=== PATIENT | male | born 1965 | race Caucasian/White ===

== ENCOUNTER 2019-06-30 12:05 | Emergency (ER) | payer OTHER ==
--- NOTE | 2019-06-30 13:06 | UC ---
Lower Extremity/Ankle HPI - HPI Summary HPI Summary: 54-year-old male comes in with chief complaint of left lateral mid foot pain and swelling. Started 2 days ago when he was walking. Pain is worse when he first initiates ambulation and then decreases as he is moving around. No known foreign body or any specific trauma. No fevers or chills feels well otherwise. He has GERD and cannot take any NSAIDs. He also has gout. He reports this does not feel like his gout typically he gets gout in the first MTP. He's had a history of plantar fasciitis in the past and also ankle tendinitis. This reminds mostly of the tendinitis. - History of Current Complaint Chief Complaint: UCLowerExtremity Stated Complaint: LEFT FOOT COMPLAINT Time Seen by Provider: 06/30/19 12:16 Pain Intensity: 10 - Allergies/Home Medications Allergies/Adverse Reactions: Allergies Allergy/AdvReac Type Severity Reaction Status Date / Time febuxostat [From Uloric] Allergy Severe diarrhea, Verified 06/30/19 12:25 gas and abdominal pain lisinopril [From Zestril] Allergy Severe throat Verified 06/30/19 12:25 swells amoxicillin [From Augmentin] Allergy Unknown GI Upset Verified 06/30/19 12:25 clavulanic acid Allergy Unknown GI Upset Verified 06/30/19 12:25 [From Augmentin] ibuprofen Allergy Unknown GI UPSET, Verified 06/30/19 12:25 HX OF GASTRIC ULCER latex Allergy Unknown Rash Verified 06/30/19 12:25 Home Medications: Home Medications Allopurinol TAB* [Zyloprim 100 MG TAB*] 400 mg PO DAILY 06/30/19 [History Confirmed 06/30/19] Aspirin 81 mg CHEW TAB* [Aspirin Low Dose TAB*] 81 mg PO DAILY 06/30/19 [ History Confirmed 06/30/19] Cetirizine* [ZyrTEC 10 MG TAB*] 10 mg PO DAILY 06/30/19 [History Confirmed 06/30] Gabapentin TAB(NF) [Neurontin 600 mg TAB(NF)] 600 mg PO BID 06/30/19 [History Confirmed 06/30/19] Hydrocodone/Acetaminophen [Hydrocodone/Acetaminophen 5-325 mg] 1 tab PO BEDTIME PRN 06/30/19 [History Confirmed 06/30/19] Hyoscyamine TAB* [Anaspaz 0.125 MG TAB*] 0.125 mg PO BID PRN 06/30/19 [History Confirmed 06/30/19] Losartan Potassium 100 mg PO DAILY 06/30/19 [History Confirmed 06/30/19] Medical Marijuana 06/30/19 [History] Montelukast Sodium TAB* [Singulair TAB*] 10 mg PO DAILY 06/30/19 [History Confirmed 06/30/19] PMH/Surg Hx/FS Hx/Imm Hx Previously Healthy: Yes - GOUT Cardiovascular History: Hypertension GI/ History: Gastroesophageal Reflux - Surgical History Surgical History: Yes Surgery Procedure, Year, and Place: LEFT KNEE. LEFT ELBOW. HIATAL HERNIA. UMBILLICAL HERNIA - Family History Known Family History: Positive: Non-Contributory - Social History Alcohol Use: None Substance Use Type: None Smoking Status (MU): Heavy Every Day Tobacco Smoker Type: Cigarettes When Did the Patient Quit Smoking/Using Tobacco: 1PPD Household Exposure Type: Cigarettes Review of Systems All Other Systems Reviewed And Are Negative: Yes Constitutional: Positive: Negative Skin: Positive: Other - SEE HPI Eyes: Positive: Negative ENT: Positive: Negative Respiratory: Positive: Negative Cardiovascular: Positive: Negative Gastrointestinal: Positive: Negative Motor: Positive: Negative Neurovascular: Positive: Negative Musculoskeletal: Positive: Other: - SEE HPI Neurological: Positive: Negative Psychological: Positive: Negative Is Patient Immunocompromised?: No Physical Exam Triage Information Reviewed: Yes Appearance: Well-Appearing, Well-Nourished, Pain Distress - MILD WITH PALPATION & ROM LEFT FOOT Vital Signs: Initial Vital Signs Temp 98.3 F 06/30/19 12:29 Pulse 102 06/30/19 12:29 Resp 20 06/30/19 12:29 BP 117/77 06/30/19 12:29 Pulse Ox 96 06/30/19 12:29 Vital Signs Reviewed: Yes Eye Exam: Normal Eyes: Positive: Conjunctiva Clear Neck: Positive: Supple Musculoskeletal: Positive: Other: - The left foot is swollen and tender to palpation on the lateral aspect of the midfoot. Achilles tendon is nontender and intact. Palpation of the lateral medial malleolus are nontender. Toes and ankle have full range of motion all this pain with range of motion. Mild erythema on the swelling is not hot to touch. No tenderness in the plantar surface of the foot no skin break or foreign body noted. Normal capillary refill normal sensation. The first MTP joint on that side is nontender to palpation and not swollen. Neurological: Positive: Alert Psychological: Positive: Age Appropriate Behavior Skin: Positive: Other - Mild erythema left lateral mid foot. Lower Extremity Course/Dx - Course Course Of Treatment: Patient Name: JULIANN GARCÍA Medical Record#: [id number] Ordering Physician: Shahab Omalley MD Acct.#: [id number] : 1965 Age: 54 Sex: M Location: [facility] Exam Date: 06/30/19 125 ADM Status: REG ER Order Information: FOOT LEFT 3+ VWS Accession Number: [id number] CPT: 02889 Indication: Left foot pain. 3 views of left foot demonstrates no fracture or dislocation. No other bone or joint abnormalities identified. IMPRESSION: No fracture of the left foot is noted. <Electronically signed by Nga Coulter MD in OV> 06/30/19 1329 I discussed the x-rays with the patient and his . Appears to be tendinitis of the midfoot. Patient can not take NSAIDs. He'll be icing it and he was placed in an Sulaiman wrap and a postop shoe with a cane here in clinic by nursing neurovascularly intact after placement. Follow-up with orthopedics or sports medicine. - Differential Dx/Diagnosis Provider Diagnosis: Tendinitis of left foot Discharge - Sign-Out/Discharge Documenting (check all that apply): Patient Departure All imaging exams completed and their final reports reviewed: Yes - Discharge Plan Condition: Stable Disposition: HOME Patient Education Materials: Foot Sprain (ED), Tendinitis (ED) Referrals: Sharon Mraadiaga MD [Primary Care Provider] - Lance Khanna MD [Medical Doctor] - [facility] [Provider Group] Additional Instructions: FOLLOW UP WITH ORTHOPEDICS OR SPORTS MEDICINE. GET REEVALUATED SOONER IF WORSE OR ANY QUESTIONS OR CONCERNS. - Billing Disposition and Condition Condition: STABLE Disposition: Home
== END 2019-06-30 13:48 | disposition home or self-care (01) ==
LOC: UCCORT 12:05
DX: M77.52 Other enthesopathy of left foot and ankle (principal); I10 Essential (primary) hypertension; M10.9 Gout, unspecified; F17.210 Nicotine dependence, cigarettes, uncomplicated
CPT/HCPCS: 99203; G0463